=== PATIENT | female | born 1935 | race Hispanic/Latino ===

== ENCOUNTER 2017-07-09 11:46 | Inpatient (IN) | payer MEDICARE ==
[~2017-07-09] VITALS: Ht 182.9 cm; Wt 119.7 kg
--- OUTSIDE RECORDS SUMMARY | 2017-07-09 11:49 | XMS REPORT ---
[facility] Address Unknown Phone Unavailable Care Team Providers Care Lounge Car Attendant Name Role Phone RELL RUELAS Unavailable Unavailable Problems This patient has no known problems. Allergies, Adverse Reactions, Alerts This patient has no known allergies or adverse reactions. Medications This patient has no known medications. Results Test Description Test Time Test Comments Text Results Atomic Results Result Comments MR, SPINE, LUMBAR, WITH 2017-05-24 16:25:00 FINAL REPORT MRI lumbar spine with and without contrast 05/24/2017 at 1557. CLINICAL HISTORY: Lumbar spine stenosis. TECHNIQUE: MRI of the lumbar spine was performed , utilizing the following sequences: Sagittal T1, T2, STIR; axial T1 and T2; postcontrast sagittal and axial T1 with fat suppression. COMPARISON: 10/16/2015. FINDINGS: There are shallow chronic wedge deformities in the T10 and T11 vertebrae. There is no acute fracture or traumatic malalignment. Bone marrow signal intensity is unremarkable. The conus medullaris terminates at the level of the L1-2 intervertebral disc. The distal spinal cord and terminal nerve roots are unremarkable. 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 At L5-S1, loss of intervertebral disc height, dorsal disc bulge, facet joint arthropathy, and posterior ligamentous thickening contribute to severe central canal stenosis, with moderate right and moderate to severe left foraminal stenosis. At L4-5, loss of intervertebral disc height, dorsal disc bulge, facet joint arthropathy, and posterior ligamentous thickening contribute to moderate central canal and bilateral foraminal stenosis. At L3-4, dorsal disc bulge with a superimposed right subarticular disc protrusion, facet joint arthropathy, and posterior ligamentous thickening contribute to moderate central canal stenosis, with moderate right lateral recess stenosis. There is mild bilateral foraminal stenosis. At L1-2, dorsal disc bulge and facet joint arthropathy contribute to mild central canal stenosis. The visualized soft tissue is without worrisome finding. IMPRESSION: 1. No acute fracture or traumatic malalignment.2. Multifactorial central canal stenosis, severe at L5-S1 and moderate at L3-4 and L4-5.3. Multifocal neuroforaminal stenoses as discussed. Signed: Gabriel Schmitteport Verified Date/Time: 05/24/2017 16:25:49 Reading Location: [facility] Radiology Reading Room -CREATININE 2017-05-24 15:07:00 POC-CREATININE (JAY) (test euem=7113) 0.8 mg/dL 0.6-1.[address] [address] POC-EGFR (JAY) (test xyuh=2122) 69 mL/min/1.73M2
--- OUTSIDE RECORDS SUMMARY | 2017-07-09 11:49 | XMS REPORT | Clinical Summary ---
Author Author [facility] Address Unknown Phone Unavailable Care Team Providers Care Frame Operator Name Role Phone PCP Unavailable Allergies No Known Allergies Current Medications Prescription Sig. Disp. Refills Start End Date Status Date gabapentin (NEURONTIN) Take 300 mg by mouth 3 Active 300 MG capsule (three) times daily. enalapril (VASOTEC) 20 MG Take 20 mg by mouth Active tablet daily. atorvastatin (LIPITOR) 40 Take 40 mg by mouth Active MG tablet daily. acetaminophen-codeine Take 1 tablet by mouth Active (TYLENOL #3) 300-30 mg every 4 (four) hours as per tablet needed for Pain. insulin 70/30, insulin Inject 95 Units Active NPH-insulin regular, subcutaneously 2 (two) (HUMULIN 70/30,NOVOLIN times daily before meals. 70/30) 100 unit/mL (70-30) injection metoprolol (LOPRESSOR) 25 Take 1 tablet (25 mg 60 tablet 3 10/17/19 10/17/19 MG tablet total) by mouth 2 (two) 16 17 times daily. Hospital, Clinic, or Ordered Dose Route Frequency Start End Date Status Other Facility Date Administered Medication gadobenate dimeglumine 20 mL IV ONCE PRN 05/24/19 05/24/19 Ended (MULTIHANCE) injection 20 18 18 mL Active Problems Problem Noted Date Hypertensive urgency 10/16/2015 Acute right-sided low back pain with right-sided sciatica 10/16/2015 Altered mental status 10/16/2015 Morbid obesity (HCC) 10/16/2015 Polyneuropathy in diabetes ([facility]) 10/16/2015 Type 2 diabetes mellitus with diabetic neuropathy, unspecified (HCC) 2015 PAD (peripheral artery disease) ([facility]), 100% left LORENZA by hx 10/16/2015 Lumbar radicular pain, by hx 10/16/2015 Lumbar spinal stenosis, by hx 10/16/2015 Personal history of spine surgery 10/16/2015 Sciatica, by hx 10/16/2015 History of breast cancer 10/16/2015 Dyspepsia and disorder of function of stomach, by hx 10/16/2015 Claudication (HCC), by hx 10/16/2015 Encounters Date Type Specialty Care Team Description 05/24/2017 Procedure visit Radiology Michael Linder MD Bilateral stenosis of lateral recess of lumbar spine 05/18/2017 Outside Orders Radiology Michael Linder MD Bilateral stenosis of lateral recess of lumbar spine (Primary Dx) after 07/08/2016 Family History Medical History Relation Name Comments Cancer Sister Relation Name Status Comments Sister Social History Tobacco Use Types Packs/Day Years Used Date Former Smoker Alcohol Use Drinks/Week oz/Week Comments No Sex Assigned at Date Recorded Not on file Last Filed Vital Signs Not on file Plan of Treatment Not on file Results * MR lumbar spine without & with IV contrast (05/24/2017 4:01 PM) Specimen Performing Laboratory SLID Narrative FINAL REPORT MRI lumbar spine with and without contrast 05/24/2017 at 1557. CLINICAL HISTORY: Lumbar spine stenosis. TECHNIQUE: MRI of the lumbar spine was performed, utilizing the following sequences: Sagittal T1, T2, [...] IMPRESSION: 1. No acute fracture or traumatic malalignment. 2. Multifactorial central canal stenosis, severe at L5-S1 and moderate at L3-4 and L4-5. 3. Multifocal neuroforaminal stenoses as discussed. Signed: Gabriel Schmitt MD Report Verified Date/Time:05/24/2017 16:25:49 Reading Location: [facility] Radiology Reading Room Procedure Note Interface, External Ris In - 05/24/2017 4:28 PM PASTE UP COPY CAMERA OPERATOR FINAL REPORT MRI lumbar spine with and without contrast 05/24/2017 at 1557. CLINICAL HISTORY: Lumbar spine stenosis. TECHNIQUE: MRI of the lumbar spine was performed, utilizing the following sequences: Sagittal T1, T2, [...] IMPRESSION: 1. No acute fracture or traumatic malalignment. 2. Multifactorial central canal stenosis, severe at L5-S1 and moderate at L3-4 and L4-5. 3. Multifocal neuroforaminal stenoses as discussed. Signed: Gabriel Schmitt MD Report Verified Date/Time: 05/24/2017 16:25:49 Reading Location: [facility] Radiology Reading Room * POC-Creatinine (05/24/2017 3:00 PM) Component Value Ref Range POC-Creatinine 0.8Comment: TESTED AT [address] 0.6 - 1.3 mg/dL [facility] [address] POC-EGFR 69 mL/min/1.73M2 Specimen Performing Laboratory Blood [facility] [address] [address] after 07/08/2016
[2017-07-09] MEDS ORDERED: ALBUTEROL SULF 0.083% NEB SOLN 3 ML NEB NEB STA (12:46)
[2017-07-09] MEDS ORDERED: TYLENOL WITH C1 EACH PO (12:49)
[2017-07-09] MEDS ORDERED: CILOSTAZOL100 MG PO (12:49)
[2017-07-09] MEDS ORDERED: RANITIDINE HCL150 MG PO (12:49)
[2017-07-09] MEDS ORDERED: LASIX40 MG PO (12:49)
[2017-07-09] MEDS ORDERED: CITALOPRAM HBR20 MG PO (12:49)
[2017-07-09] MEDS ORDERED: METOPROLOL TART50 MG PO (12:49)
[2017-07-09] MEDS ORDERED: IPRATROPIUM BROMIDE 0.02% 2.5 ML NEB NEB ONE (13:00)
[2017-07-09] MEDS ORDERED: FUROSEMIDE INJ 10 MG/ML 4 ML VIAL IV ONE (13:00)
[2017-07-09] MEDS ORDERED: METHYLPREDNISOLONE SOD SUCC 125 MG/2ML VIAL IV ONE (13:00)
[2017-07-09] MEDS ORDERED: CEFTRIAXONE SOD 1 GM VIAL IV ONE (13:00)
[2017-07-09] MEDS ORDERED: AZITHROMYCIN 500MG/NS 250 ML 250 ML IV ONE ×2 (13:15→17:30)
--- OUTSIDE RECORDS SUMMARY | 2017-07-09 14:26 | XMS REPORT | Clinical Summary ---
Author Author [facility] Address Unknown Phone Unavailable Care Team Providers Care Boiler Out Name Role Phone PCP Unavailable Allergies No [...] Morbid obesity (HCC) 10/16/2015 Polyneuropathy in diabetes ([facility]) 10/16/2015 Type 2 diabetes mellitus with diabetic neuropathy, unspecified (HCC) 2015 PAD (peripheral artery disease) ([facility]), 100% left LORENZA by hx 10/16/2015 Lumbar [...] contrast (05/24/2017 4:01 PM) Specimen Performing Laboratory Lydia Narrative FINAL REPORT MRI lumbar spine with [...] MD Report Verified Date/Time:05/24/2017 16:25:49 Reading Location: [facility] Radiology Reading Room Procedure Note Interface, External Ris In - 05/24/2017 4:28 PM SNOW PLOW OPERATOR FINAL REPORT MRI lumbar spine with [...] Report Verified Date/Time: 05/24/2017 16:25:49 Reading Location: [facility] Radiology Reading Room * POC-Creatinine (05/24/2017 3:00 PM) Component Value Ref Range POC-Creatinine 0.8Comment: TESTED AT [address] 0.6 - 1.3 mg/dL [facility] [address] POC-EGFR 69 mL/min/1.73M2 Specimen Performing Laboratory Blood [facility] [address] [address] after 07/08/2016
--- OUTSIDE RECORDS SUMMARY | 2017-07-09 14:26 | XMS REPORT | Continuity of Care Document ---
Author Author [facility] Organization [facility] Address [address] [place] [address] Phone Unavailable Care Team Providers Care Financial Secretary Name Role Phone RELL RUELAS MD PCP Unavailable Insurance Providers Guarantor Veto Pang Address [address] [place] [address] Email NONE Payer [employer] Medicare Advantage Policy Number [id number] Subscriber's Name Veto Pang Relationship 18 Self / Same As Patient Group Name RETIRED Advance Directives Directive Response Recorded Date/Time Does the patient have an advance directive? No 07/09/17 12:24pm If yes, is advance directive on file with [facility]? No 07/09/17 12:24pm If not on file with [facility] will patient provide a copy? No 07/09/17 12:24pm Do you have a Directive to Physician? No 07/09/17 12:24pm Do you have a Medical Power of Cane Packer? No 07/09/17 12:24pm Do you have an out of hospital Do Not Resuscitate Order? No 07/09/17 12:24pm Do you have any special needs we should be aware of? No 07/09/17 12:24pm Do you have a support person here with you today? Yes 07/09/17 12:24pm Did patient receive Notice of Privacy Practices? Yes 07/09/17 12:24pm Did patient receive patient rights and responsibilities? Yes 07/09/17 12:24pm Problems No problem information available. Medications Current Home Medications Medication Dose Units Route Directions Days Qty Instructions Start Date Acetaminophen With Codeine (Tylenol With Codeine #3 Tablet) 1 Each Tablet 300 Mg Oral Every 4 Hours Cilostazol 100 Mg Tablet 50 Mg Oral Twice A Day 30 Tab Citalopram Hydrobromide (Citalopram Hbr) 20 Mg Tablet 20 Mg Oral Daily Furosemide (Lasix) 40 Mg Tablet 40 Mg Oral Daily 30 Tab Metoprolol Tartrate 50 Mg Tablet 50 Mg Oral Daily Ranitidine Hcl 150 Mg Tablet 150 Mg Oral Bedtime Social History Smoking Status Start Date Stop Date Former smoker Hospital Discharge Instructions No hospital discharge instruction information available. Plan of Care Discharge Date 07/09/17 2:03pm Disposition ADMITTED Condition at Discharge Stable Forms Provided Work/School Excuse Prescriptions See Medication Section Functional Status No functional status information available. Allergies, Adverse Reactions, Alerts Allergen Type Severity Reaction Status Last Updated UNK NAME MUSCLE RELAXER Allergy Unknown Active 07/09/17 Immunizations No immunization information available. Vital Signs Acute Vital Signs Vital Response Date/Time Height 5 ft 1 in 07/09/2017 12:23pm Weight 269 lb 07/09/2017 12:23pm Body Mass Index 50.8 kg/m^2 07/09/2017 12:23pm Results No relevant diagnostic test, laboratory data and/or discharge summary information available. Procedures No procedure information available. Encounters Encounter Location Arrival/Admit Date Discharge/Depart Date Attending Provider Departed Emergency Room [facility] 07/09/17 11:46am 07/09 2:03pm DEMETRIA WALTERS
[2017-07-09 14:59] VITALS: BP 150/67
[2017-07-09 15:14] VITALS: BP 150/67
[2017-07-09] MEDS ORDERED: NOVOLOG MI100 UNIT/1 SC (15:29)
[2017-07-09] MEDS ORDERED: GABAPENTIN300 MG PO ×2 (15:30→15:31)
[2017-07-09] MEDS ORDERED: SODIUM CHLORIDE 0.9% 250ML 250 ML ONE (17:35)
[2017-07-09] MEDS ORDERED: HYDRALAZINE HCL 20 MG/ML VIAL IV PRN (18:15)
[2017-07-09] MEDS ORDERED: METOPROLOL TARTRATE 50 MG TAB PO SCH (18:30)
[2017-07-09] MEDS ORDERED: DEXTROSE 50% SYRINGE 50 ML IV PRN (18:30)
[2017-07-09 20:21] VITALS: BP 130/45
[2017-07-09] MEDS ORDERED: INSULIN ASPART 70/30 100 UNITS/ML VIAL SC ONE (21:00)
[2017-07-09] MEDS: INSULIN REGULAR, HUMAN 100 UNIT/1 ML 3ML VIAL SQ SCH (21:40)
[2017-07-09] MEDS: GABAPENTIN 300 MG CAP PO SCH (21:40)
[2017-07-09] MEDS: METOPROLOL TARTRATE 50 MG TAB PO SCH (21:40)
[2017-07-09] MEDS: FAMOTIDINE 20 MG TAB PO SCH (21:40)
[2017-07-09] MEDS: ACETAMINOPHEN/CODEINE 300MG - 30MG TAB PO SCH (21:40)
[2017-07-10] VITALS (7 sets, daily range): BP systolic 122–156; BP diastolic 53–63
[2017-07-10] MEDS: ACETAMINOPHEN/CODEINE 300MG - 30MG TAB PO SCH ×2 (02:00→05:27)
--- NOTE | 2017-07-10 06:37 | Diagnostic Imaging Report ---
CHEST 2 VIEWS, the renal Technique: CHEST 2 VIEWS Comparison: None Clinical history: Pneumonia DISCUSSION: Significantly limited by body habitus. Enlarged cardiomediastinal silhouette. Suggestion of mild bilateral interstitial opacities. No significant effusion. IMPRESSION: Significantly degraded by soft tissue attenuation. Enlarged cardiomediastinal silhouette with suggestion of bilateral opacities which may be related to edema or infection. Signed by: Dr Antoinette Zhao MD on 07/10/2017 6:33 AM
[2017-07-10 07:21] LABS: BASOPHILS % 0.1 % (0.0-1.0); HEMOGLOBIN 11.6 g/dL (12.0-16.0); LYMPHOCYTES # (AUTO) 0.9 (1.0-3.2); LYMPHOCYTES % 7.6 % (18.0-39.1); MEAN CORPUSCULAR HGB CONC 31.4 g/dL (31-35); MEAN CORPUSCULAR VOLUME 89.4 fL (81-99); MONOCYTES # (AUTO) 0.6 (0.2-0.8); MONOCYTES % 4.8 % (4.4-11.3); NEUTROPHILS # (AUTO) 10.2 (2.1-6.9); NEUTROPHILS % 87.1 % (38.7-80.0); PLATELET COUNT 57 x10e3/uL (140-360); RED BLOOD COUNT 4.14 x10e6/uL (3.6-5.1); RED CELL DISTRIBUTION WIDTH 15.1 % (11.7-14.4)
[2017-07-10 07:51] LABS: ALANINE AMINOTRANSFERASE 16 IU/L (0-55); ALBUMIN 2.8 g/dL (3.5-5.0); ALBUMIN/GLOBULIN RATIO 0.6 (0.8-2.0); ALKALINE PHOSPHATASE 70 IU/L (40-150); ANION GAP 11.6 mmol/L (8-16); BLOOD UREA NITROGEN 17 mg/dL (7-26); BUN/CREATININE RATIO 22 (6-25); CALCIUM 9.1 mg/dL (8.4-10.2); CARBON DIOXIDE 33 mmol/L (22-29); CHLORIDE 99 mmol/L (98-107); CREATININE, SERUM 0.79 mg/dL (0.57-1.11); EST GLOMERULAR FILTRATION RATE > 60 ML/MIN (60-); GLUCOSE 191 mg/dL (74-118); POTASSIUM 4.6 mmol/L (3.5-5.1); SODIUM 139 mmol/L (136-145)
[2017-07-10] MEDS: GABAPENTIN 300 MG CAP PO SCH ×3 (08:30→20:20)
[2017-07-10] MEDS: INSULIN REGULAR, HUMAN 100 UNIT/1 ML 3ML VIAL SQ SCH ×4 (08:30→20:22)
[2017-07-10] MEDS: FUROSEMIDE 40 MG TAB PO SCH (08:30)
[2017-07-10] MEDS: CILOSTAZOL 100 MG TAB PO SCH ×2 (08:30→19:20)
[2017-07-10] MEDS: INSULIN ASPART 70/30 100 UNITS/ML VIAL SC SCH ×2 (08:30→16:45)
[2017-07-10] MEDS: METOPROLOL TARTRATE 50 MG TAB PO SCH ×2 (09:00→20:20)
[2017-07-10] MEDS: CEFTRIAXONE SOD 1 GM VIAL IV SCH (12:22)
--- NOTE | 2017-07-10 12:22 | History and Physical ---
PRIMARY CARE DOCTOR: Dr. Linder with [facility]. HOSPITAL PHYSICIAN: Dr. Alireza Cook HISTORY: Ms. Caputo is a pleasant 81-year-old female with shortness of breath. Patient with symptoms times 1-1/2 days pattern of progression. Family finally pushed the patient to come to the emergency room as patient often avoids situations like health care. Patient's condition was worsened by walking and exertion. There was no definite sputum being expectorated. No fevers. Patient came to emergency room. Of note, blood pressure recorded as 255/98. Oxygen saturation was 85% on room air. Heart rate was 84. Labs were, for the most part, mostly unremarkable, but patient had chest x-ray showing right-sided opacity consistent with pneumonia versus early vascular congestion. At this point, she is admitted to the hospital. PAST MEDICAL HISTORY: Hypertension, diabetes, hyperlipidemia, breast cancer, status post left mastectomy, neuropathy, recently diagnosed rheumatoid arthritis, she says 3 weeks ago. MEDICATIONS: Medication list reviewed per electronic record. Of note, she was not on any immunosuppression for the rheumatoid disease yet as far as she can tell. Other medicines for electronic record. ALLERGIES: UNKNOWN MUSCLE RELAXER. SOCIAL HISTORY: No alcohol, no drugs. Patient smoked from age 17 to 61, one pack per day, but quit 20 years ago. No alcohol, no drugs. She formerly worked in a flower shop and currently lives with her daughter. FAMILY HISTORY: Noncontributory to this. REVIEW OF SYSTEMS GENERAL: No weight changes. OPHTHALMOLOGIC: No double vision. ENT: No nosebleed. ENDOCRINE: No known thyroid disease. PULMONARY: No asthma. CARDIAC: No heart attacks. GI: No constipation. : No blood in urine. NEUROLOGIC: No seizures. DERMATOLOGIC: No rashes. MUSCULOSKELETAL: There is some arthritis, it is mostly mild. OBJECTIVE VITAL SIGNS: Afebrile, vital signs reviewed per electronic record. Blood pressure has gotten better. GENERAL: In bed, calm. HEENT: Normocephalic, atraumatic. NECK: Supple. Throat midline. LUNGS: Bilateral air entry, decreased breath sounds throughout, rare rhonchi. CARDIOVASCULAR: S1, S2. No murmurs, rubs or gallops. ABDOMEN: Soft and nontender. EXTREMITIES: No clubbing, no cyanosis. There is 1 to 2+ edema. INTEGUMENT: No rash, no purpura. LABS: BNP was 299. Initial cardiac enzymes are negative. Potassium 4.3, bicarbonate 33, glucose 176, calcium 9.0, BUN 11, creatinine 0.7, albumin is 3.3. Coagulation time unremarkable per record with INR 1.1. Urinalysis with trace blood, 100 mg/dL protein. Otherwise, unremarkable with negative nitrates and negative leukocyte esterase. White count 9, hematocrit 37, platelets 119,000. Chest x-ray, above. IMPRESSIONS AND PLAN 1. Abnormal chest radiography, treat for acute pneumonia. 2. Abnormal chest radiography, treat for possible pulmonary edema, related to hypertensive emergency. 3. Hypertensive emergency. 4. Hypoxemia. 5. Possible chronic obstructive pulmonary disease. 6. Former smoker, quit 20 years ago. 7. Hyperlipidemia, diabetes, hypertension, neuropathy, breast cancer, recent diagnosis of rheumatoid arthritis. Bronchodilators. Give some steroids. IV antibiotics empiric for now. Check an echo. Patient has high recommendation for outpatient sleep study since she was referred to this before, but she did not go to specialist for this. Check TSH. Physical therapy. If patient stabilizes, we hope she can leave the hospital soon, although this will depend on the clinical workup. Follow up including blood pressure, and oxygenation. Patient needs home oxygen evaluation prior to discharge. Thank very much, Dr. Linder and Dr. Cook, for allowing me the chance to participate in the care of Mrs. Caputo. Do not hesitate to contact me if I can help in any way. Job#: [id number] CQ
[2017-07-10] MEDS: AZITHROMYCIN 500MG/NS 250 ML 250 ML IV SCH (19:20)
[2017-07-10] MEDS: ACETAMINOPHEN/CODEINE 300MG - 30MG TAB PO PRN (19:58)
[2017-07-10] MEDS: FAMOTIDINE 20 MG TAB PO SCH (20:20)
[2017-07-10] MEDS ORDERED: GABAPENTIN300 MG PO (21:31)
[2017-07-10] MEDS ORDERED: LASIX40 MG PO ×2 (21:31→21:36)
[2017-07-10] MEDS ORDERED: ZITHROMAX500 MG PO (21:31)
[2017-07-10] MEDS ORDERED: LISINOPRIL10 MG PO (21:34)
--- NOTE | 2017-07-10 22:10 | Progress Note ---
DATE: July 10, 2017 INTERNAL MEDICINE PROGRESS NOTE SUBJECTIVE: Ms. Roula Caputo was seen and examined at bedside. She continues to have slow progress. She is feeling that her strength is at about 80% of her normal. She is eating well. Chest x-ray done showed continued active process consistent with mild fluid overload versus mild pneumonitis. Echocardiogram was done showing 60% to 65% LVEF with RVSP estimated at 37 mmHg with enlarged RV and 1.1 cm intraventricular septum distance. Blood pressure is not critically high as was yesterday. REVIEW OF SYSTEMS: No bleeding, no headaches. OBJECTIVE: VITAL SIGNS: Afebrile, vital signs noted per electronic record. GENERAL: In no acute distress, alert and calm. HEENT: Normocephalic, atraumatic. NECK: Supple. Throat midline. LUNGS: Bilateral air entry, rare rhonchi, mostly clear. CARDIOVASCULAR: S1, S2. No murmurs, rubs, or gallops. ABDOMEN: Soft, nontender, obese. EXTREMITIES: No clubbing, no cyanosis, there is 2+ edema. INTEGUMENT: No rash, no purpura. LABS: 17 BUN, 0.8 creatinine. 4.6 potassium. 4 white count, 37 hematocrit, 57,000 platelets. IMPRESSION AND PLAN: 1. Treat for mild pulmonary edema, likely due to hypertensive emergency. 2. Possible pneumonia. 3. Hypertensive emergency. 4. Weakness. 5. Hyperglycemia, mildly high. 6. Moderate hypoalbuminemia. 7. Elevated gamma globulins. 8. Low platelets. 9. Hyperlipidemia. 10. Breast cancer, status post left mastectomy. 11. Neuropathy. 12. Recently diagnosed rheumatoid arthritis. Continue oxygen weaning. Get oxygen assessment tomorrow if the patient goes home. Continue to control blood pressure. Continue Lasix intravenously. Repeat a chest x-ray tomorrow. Repeat complete blood cell count given the low platelets. Will follow along closely. Possible discharge if she continues to improve tomorrow. Job#: [id number]
[2017-07-11] VITALS (8 sets, daily range): BP systolic 113–170; BP diastolic 49–73
[2017-07-11] MEDS: ACETAMINOPHEN/CODEINE 300MG - 30MG TAB PO PRN ×2 (05:15→19:45)
[2017-07-11 06:22] LABS: BASOPHILS % 0.3 % (0.0-1.0); EOSINOPHILS # (AUTO) 0.1 (0.0-0.4); EOSINOPHILS % 0.6 % (0.0-6.0); HEMATOCRIT 36.9 % (34.2-44.1); HEMOGLOBIN 11.5 g/dL (12.0-16.0); LYMPHOCYTES # (AUTO) 1.6 (1.0-3.2); LYMPHOCYTES % 13.5 % (18.0-39.1); MEAN CORPUSCULAR HGB CONC 31.2 g/dL (31-35); MONOCYTES # (AUTO) 0.9 (0.2-0.8); MONOCYTES % 7.7 % (4.4-11.3); NEUTROPHILS % 77.5 % (38.7-80.0); PLATELET COUNT 115 x10e3/uL (140-360); RED CELL DISTRIBUTION WIDTH 15.2 % (11.7-14.4)
--- NOTE | 2017-07-11 06:28 | Diagnostic Imaging Report ---
EXAMINATION: CHEST SINGLE (PORTABLE) INDICATION: Congestive heart failure COMPARISON: 07/10/2017 FINDINGS: TUBES and LINES: None. LUNGS: Lungs are not well inflated. Central vascular congestion. There is perihilar interstitial opacities, consistent with interstitial edema. PLEURA: No pleural effusion or pneumothorax. HEART AND MEDIASTINUM: Cardiac size is mildly enlarged. There are atherosclerotic calcifications within the aorta. BONES AND SOFT TISSUES: No acute osseous lesion. Soft tissues are unremarkable. UPPER ABDOMEN: No free air under the diaphragm. IMPRESSION: Findings are compatible with mild cardiogenic pulmonary edema Signed by: Dr. Tl Swanson M.D. on 07/11/2017 6:24 AM
[2017-07-11] MEDS: INSULIN REGULAR, HUMAN 100 UNIT/1 ML 3ML VIAL SQ SCH ×4 (07:30→22:44)
[2017-07-11] MEDS ORDERED: FUROSEMIDE INJ 10 MG/ML 4 ML VIAL IV ONE ×2 (08:00→21:00)
[2017-07-11] MEDS: INSULIN ASPART 70/30 100 UNITS/ML VIAL SC SCH ×2 (08:00→16:40)
[2017-07-11] MEDS: FUROSEMIDE 40 MG TAB PO SCH (08:42)
[2017-07-11] MEDS: CILOSTAZOL 100 MG TAB PO SCH ×2 (08:42→17:07)
[2017-07-11] MEDS: GABAPENTIN 300 MG CAP PO SCH ×3 (08:42→22:40)
[2017-07-11] MEDS: METOPROLOL TARTRATE 50 MG TAB PO SCH ×2 (08:42→22:40)
[2017-07-11] MEDS: CEFTRIAXONE SOD 1 GM VIAL IV SCH (12:02)
[2017-07-11] MEDS: AZITHROMYCIN 500MG/NS 250 ML 250 ML IV SCH (17:07)
[2017-07-11] MEDS: FAMOTIDINE 20 MG TAB PO SCH (22:40)
--- NOTE | 2017-07-11 23:48 | Progress Note ---
DATE: July 11, 2017 INTERNAL MEDICINE PROGRESS NOTE SUBJECTIVE: Ms. Caputo was seen and examined at bedside. She continues to have early dyspnea. Blood pressure mildly high, but definitely not emergent. 97% oxygen saturation on 2 L per minute oxygen. There is mild hematuria per Martin in place. Two bowel movements noted. Patient with 87% room air saturation at rest noted. REVIEW OF SYSTEMS: No bleeding, no diarrhea. OBJECTIVE VITAL SIGNS: Afebrile, vital signs noted per electronic record. GENERAL: In no acute distress, alert and calm. HEENT: Normocephalic, atraumatic. NECK: Supple. Throat midline. LUNGS: Bilateral air entry, decreased breath sounds throughout, rare rhonchi. CARDIOVASCULAR: S1, S2. No murmurs, rubs or gallops. ABDOMEN: Soft, nontender. EXTREMITIES: No clubbing, no cyanosis, there is still the 1 to 2+ edema. INTEGUMENT: No rash, no purpura. LABS: 115,000 platelet count increasing, 11 white count. CHEST X-RAY: Stable bilateral patchy opacities, pneumonia versus overload. IMPRESSIONS AND PLAN 1. Abnormal chest radiography, treat as fluid overload. 2. Hypertension with emergency with very high blood pressure. 3. Abnormal chest radiography, possible pneumonia. 4. Thrombocytopenia. 5. Hypoxemia. 6. Moderate hypoalbuminemia, elevated gamma globulins, low platelets. 7. Hyperlipidemia. 8. Breast cancer, status post mastectomy. 9. Neuropathy. 10. Recently diagnosed rheumatoid arthritis. Continue current treatment at this time. Home oxygen will be ordered. Increase Lasix further. Ought to get better improvement in functional endurance prior to her going home. Follow along closely. Continue antibiotics for possibility of pneumonia. Glucose control. Job#: [id number] CQ
[2017-07-12] MEDS: ACETAMINOPHEN/CODEINE 300MG - 30MG TAB PO PRN ×2 (00:04→09:15)
[2017-07-12 01:30] VITALS: BP 122/55
[2017-07-12 05:50] VITALS: BP 175/60
--- NOTE | 2017-07-12 06:48 | Diagnostic Imaging Report ---
EXAMINATION: CHEST SINGLE (PORTABLE) INDICATION: Congestive heart failure COMPARISON: 07/11/2017 FINDINGS: TUBES and LINES: None. LUNGS: Lungs are not well inflated. There are bibasilar atelectasis. There is mild prominence of the central pulmonary vasculature, consistent with pulmonary venous congestion. PLEURA: No pleural effusion or pneumothorax. HEART AND MEDIASTINUM: Cardiac size is moderately enlarged. There are atherosclerotic calcifications within the aorta. BONES AND SOFT TISSUES: No acute osseous lesion. Soft tissues are unremarkable. UPPER ABDOMEN: No free air under the diaphragm. IMPRESSION: 1. Limited exam due to motion artifact 2. Cardiomegaly without distinct evidence of decompensation Signed by: Dr. Tl Swanson M.D. on 07/12/2017 6:44 AM
[2017-07-12 07:14] LABS: ANION GAP 10.2 mmol/L (8-16); BLOOD UREA NITROGEN 25 mg/dL (7-26); BUN/CREATININE RATIO 31 (6-25); CHLORIDE 93 mmol/L (98-107); EST GLOMERULAR FILTRATION RATE > 60 ML/MIN (60-); MAGNESIUM 1.5 MG/DL (1.3-2.1); POTASSIUM 4.2 mmol/L (3.5-5.1); SODIUM 140 mmol/L (136-145)
[2017-07-12] MEDS: INSULIN REGULAR, HUMAN 100 UNIT/1 ML 3ML VIAL SQ SCH ×3 (07:30→16:30)
[2017-07-12 08:00] VITALS: BP 168/71
[2017-07-12] MEDS: GABAPENTIN 300 MG CAP PO SCH ×2 (08:45→11:22)
[2017-07-12] MEDS ORDERED: FUROSEMIDE INJ 10 MG/ML 4 ML VIAL IV SCH (09:00)
[2017-07-12] MEDS ORDERED: LISINOPRIL 10 MG TAB PO SCH (09:00)
[2017-07-12] MEDS: METOPROLOL TARTRATE 50 MG TAB PO SCH (09:04)
[2017-07-12] MEDS: CILOSTAZOL 100 MG TAB PO SCH ×2 (09:04→17:00)
[2017-07-12] MEDS: INSULIN ASPART 70/30 100 UNITS/ML VIAL SC SCH ×2 (09:05→17:13)
[2017-07-12 09:42] LABS: CARBON DIOXIDE 41 mmol/L (22-29); GLUCOSE 59 mg/dL (74-118)
[2017-07-12 12:00] VITALS: BP 147/67
[2017-07-12] MEDS: CEFTRIAXONE SOD 1 GM VIAL IV SCH (12:56)
[2017-07-12 16:00] VITALS: BP 163/57
--- NOTE | 2017-07-13 06:26 | Discharge Summary ---
PRIMARY DIAGNOSES 1. Hypertension emergency. 2. Treated for acute pneumonia. 3. Treated for pulmonary edema. SECONDARY DIAGNOSES 1. Hypoxemia upon discharge. 2. Possible chronic obstructive pulmonary disease. 3. Obesity. 4. Former smoker but quit 20 years ago. 5. Hyperlipidemia. 6. Diabetes. 7. Hypertension. 8. Neuropathy. 9. Breast cancer. 10. Reported recent diagnosis of rheumatoid arthritis. HOSPITAL COURSE: The patient had 1-1/2 days of symptoms. She came to the emergency room with blood pressure of 255/98. Oxygen saturation was 85% on room air. Chest x-ray showed opacity consistent with pneumonia versus fluid overload. She was admitted. Blood pressure was controlled. The patient's pneumonia was treated. Chest x-ray was also slightly improved, and she was given some diuretics. Eventually, she was allowed to go home for outpatient followup and care. She was highly recommended for outpatient sleep study, which her previous doctor was definitely recommending, but she was deferring. I gave this recommendation to the family. Diuretics were slightly increased at discharge, and she was given some antibiotic course to finish up after she left the hospital. FOLLOWUP: Dr. Linder at [facility]. NUTRITION: Cardiac, diabetic diet. ACTIVITY: At discharge is as tolerated. MEDICATIONS ON DISCHARGE: See medication record for details. Greater than 30 minutes in direct care today for discharge coordination. CALDERON MARROQUIN MD Job#: [id number]
== END 2017-07-12 17:20 | disposition home or self-care (01) | DRG 304 ==
LOC: FSED 11:46 → MED/SURG2 14:23
PROVIDERS: ADMIT Internal Medicine; ATTEND Internal Medicine
DX: I16.1 Hypertensive emergency (principal); J18.9 Pneumonia, unspecified organism; J81.1 Chronic pulmonary edema; J44.0 Chronic obstructive pulmonary disease with (acute) lower respiratory infection; I10 Essential (primary) hypertension; E11.65 Type 2 diabetes mellitus with hyperglycemia; E11.40 Type 2 diabetes mellitus with diabetic neuropathy, unspecified; D69.6 Thrombocytopenia, unspecified; E88.09 Other disorders of plasma-protein metabolism, not elsewhere classified; R09.02 Hypoxemia; E78.5 Hyperlipidemia, unspecified; E66.9 Obesity, unspecified; Z68.35 Body mass index [BMI] 35.0-35.9, adult; M06.9 Rheumatoid arthritis, unspecified; Z87.891 Personal history of nicotine dependence; Z85.3 Personal history of malignant neoplasm of breast; Z79.4 Long term (current) use of insulin
CPT/HCPCS: 36415; 51700; 71045; 71046; 80048; 80053; 82553; 82948; 83735; 83880; 84443; 84484; 85025; 85610; 87040; 93005; 93306; 97139; 99285; J0456; J0696; J1815; J1940; J7050; J7799

== ENCOUNTER 2017-08-04 11:57 | Inpatient (IN) | payer MEDICARE ==
[~2017-08-04] VITALS: Ht 152.4 cm; Wt 119.4 kg
[~2017-08-04 11:57] MED LIST: CILOSTAZOL100 MG PO; CITALOPRAM HBR20 MG PO; GABAPENTIN300 MG PO; LASIX40 MG PO; LISINOPRIL10 MG PO; METOPROLOL TART50 MG PO; NOVOLOG MI100 UNIT/1 SC; RANITIDINE HCL150 MG PO; TYLENOL WITH C1 EACH PO; ZITHROMAX500 MG PO
--- OUTSIDE RECORDS SUMMARY | 2017-08-04 12:00 | XMS REPORT | Continuity of Care Document ---
Author Author [facility] Organization [facility] Address [address] [place] [address] Phone Unavailable Care Team Providers Care Pattern Maker Name Role Phone RELL RUELAS MD PCP Unavailable Insurance Providers Guarantor Veto Caputo Address [address] [place] [address] Email NONE Payer [employer] Medicare Advantage Policy Number [id number] Subscriber's Name HarshalVeto Relationship 18 Self / Same As Patient Group Name RETIRED Effective Date 09 Advance Directives Directive Response Recorded Date/Time Does the patient have an advance directive? No 07/09/17 2:59pm If yes, is advance directive on file with [facility]? No 07/09/17 2:59pm If not on file with [facility] will patient provide a copy? No 07/09/17 2:59pm Do you have a Directive to Physician? No 07/09/17 12:24pm Do you have a Medical Power of Kayak Maker? No 07/09/17 12:24pm Do you have an [...] Tablet 300 Mg Oral Every 4 Hours Azithromycin (Zithromax) 500 Mg Tablet 500 Mg Oral Daily 5 Tab 05/28 Cilostazol 100 Mg Tablet 50 Mg Oral Twice A Day 30 Tab Furosemide (Lasix) 40 Mg Tablet 60 Mg Oral Daily 45 Tab 07/10/17 Gabapentin 300 Mg Capsule 300 Mg Oral Twice Daily Breakfast & Lunch 60 Cap Gabapentin 300 Mg Capsule 600 Mg Oral Bedtime 30 Cap 07/10/17 Insuln Asp Prt/Insulin Aspart (Novolog Mix 70-30 Flexpen Syrn) 100 Unit/1 Ml Insuln.pen 85 Subcutaneously Every 12 Hours Lisinopril 10 Mg Tablet 10 Mg Oral Daily 30 Tab 07/10/17 Metoprolol Tartrate 50 Mg Tablet 50 Mg Oral Every 12 Hours Ranitidine Hcl 150 Mg Tablet 150 Mg Oral Bedtime Past Home Medications Medication Directions Ordered Status Citalopram Hydrobromide (Citalopram Hbr) 20 Mg Tablet, 20 Mg Oral Daily Discontinued Furosemide (Lasix) 40 Mg Tablet, 60 Mg Oral Daily 07/10/17 Discontinued Furosemide (Lasix) 40 Mg Tablet, 40 Mg Oral Daily Discontinued Gabapentin 300 Mg Capsule, 600 Mg Oral Discontinued Social History Social History Problem Response Recorded Date/Time Onset Date Status Hx Psychiatric Problems No 07/09/2017 2:59pm Not Applicable Not Applicable Smoking Status Start Date Stop Date Former smoker Hospital Discharge Instructions No hospital discharge instruction information available. Plan of Care Discharge Date 07/12/17 5:20pm Disposition HOME, SELF-CARE Instructions/Education Provided Pneumonia - Bacterial Prescriptions See Medication Section Additional Instructions/Education CONTINUE DIET AND ACTIVITY TOLERATED FOLLOW UP WITH PRIMARY IN 1-2 WEEKS SRINIVASA JANSEN Functional Status Query Response Date Recorded FUNCTIONAL STATUS . July 10, 2017 4:12pm Assistive Devices Straight Cane July 09, 2017 3:14pm Ambulation Ability Standby Assistance July 09, 2017 3:14pm Toileting Ability Independent July 12, 2017 5:20pm Allergies, Adverse Reactions, Alerts Allergen Type Severity Reaction Status Last Updated UNK NAME MUSCLE RELAXER Allergy Unknown Active 07/09/17 Immunizations No immunization information available. Vital Signs Acute Vital Signs Vital Response Date/Time Temperature (Fahrenheit) 98.9 degrees F (97.6 - 99.5) 07/12/2017 4:00pm Pulse Pulse Rate (adult) 65 bpm (60 - 90) 07/12/2017 4:00pm Respiratory Rate 19 bpm (12 - 24) 07/12/2017 4:00pm Blood Pressure 163/57 mm Hg 07/12/2017 4:00pm Height 6 ft 0 in 07/09/2017 6:34pm Weight 264 lb 07/09/2017 2:59pm Body Mass Index 35.8 kg/m^2 07/09/2017 6:34pm Results Laboratory Results Test Name Result Units Flags Reference Collection Date/Time Result Date/ Time Comments White Blood Count 11.59 x10e3/uL H 4.8-10.8 07/11/2017 5:55am 2017 6:23am Red Blood Count 4.10 x10e6/uL 3.6-5.1 07/11/2017 5:55am 07/11/2017 6: 23am Hemoglobin 11.5 g/dL L 12.0-16.0 07/11/2017 5:55am 07/11/2017 6:23am Hematocrit 36.9 % 34.2-44.1 07/11/2017 5:55am 07/11/2017 6:23am Mean Corpuscular Volume 90.0 fL 81-99 07/11/2017 5:55am 07/11/2017 6: 23am Mean Corpuscular Hemoglobin 28.0 pg 28-32 07/11/2017 5:55am 07/11/2017 6:23am Mean Corpuscular Hemoglobin Concent 31.2 g/dL 31-35 07/11/2017 5:55am 07/11/2017 6:23am Red Cell Distribution Width 15.2 % H 11.7-14.4 07/11/2017 5:55am 2017 6:23am Platelet Count 115 x10e3/uL L 140-360 07/11/2017 5:55am 07/11/2017 6: 23am Neutrophils (%) (Auto) 77.5 % 38.7-80.0 07/11/2017 5:55am 07/11/2017 6: 23am Lymphocytes (%) (Auto) 13.5 % L 18.0-39.1 07/11/2017 5:55am 07/11/2017 6 :23am Monocytes (%) (Auto) 7.7 % 4.4-11.3 07/11/2017 5:55am 07/11/2017 6: 23am Eosinophils (%) (Auto) 0.6 % 0.0-6.0 07/11/2017 5:55am 07/11/2017 6: 23am Basophils (%) (Auto) 0.3 % 0.0-1.0 07/11/2017 5:55am 07/11/2017 6:23am IM GRANULOCYTES % 0.4 % 0.0-1.0 07/11/2017 5:55am 07/11/2017 6:23am Neutrophils # (Auto) 9.0 H 2.1-6.9 07/11/2017 5:55am 07/11/2017 6: 23am Lymphocytes # (Auto) 1.6 1.0-3.2 07/11/2017 5:55am 07/11/2017 6:23am Monocytes # (Auto) 0.9 H 0.2-0.8 07/11/2017 5:55am 07/11/2017 6:23am Eosinophils # (Auto) 0.1 0.0-0.4 07/11/2017 5:55am 07/11/2017 6:23am Basophils # (Auto) 0.0 0.0-0.1 07/11/2017 5:55am 07/11/2017 6:23am Absolute Immature Granulocyte (auto 0.05 x10e3/uL 0-0.1 07/11/2017 5: 55am 07/11/2017 6:23am Sodium Level 140 mmol/L 136-145 07/12/2017 6:12am 07/12/2017 7:25am Potassium Level 4.2 mmol/L 3.5-5.1 07/12/2017 6:12am 07/12/2017 7:25am Chloride Level 93 mmol/L L 98-107 07/12/2017 6:12am 07/12/2017 7:25am Carbon Dioxide Level 41 mmol/L *H 22-29 07/12/2017 6:12am 07/12/2017 9: 42am Results called to SRINIVASA MONCADA RN at 0722 on 07/12/17 by Archie Bautista. RB OK. This test has been rerun and double checked for accuracy. Anion Gap 10.2 mmol/L 8-16 07/12/2017 6:12am 07/12/2017 7:25am Blood Urea Nitrogen 25 mg/dL 7-07/12/2017 6:12am 07/12/2017 7:25am Creatinine 0.80 mg/dL 0.57-1.11 07/12/2017 6:12am 07/12/2017 7:25am BUN/Creatinine Ratio 31 H 6-25 07/12/2017 6:12am 07/12/2017 7:25am Estimat Glomerular Filtration Rate > 60 ML/MIN 60- 07/12/2017 6:12 7:25am Ranges were taken from the National Kidney Disease Education Program and the National Kidney Foundation literature. Reference ranges: 60 or greater: Normal 16-59 (for 3 consecutive months): Chronic kidney disease 15 or less: Kidney failure Glucose Level 59 mg/dL *L 74-118 07/12/2017 6:12am 07/12/2017 9:42am Results called to SRINIVASA MONCADA RN at 0722 on 07/12/17 by Archie Bautista. RB OK. This test has been rerun and double checked for accuracy. Calcium Level 9.0 mg/dL 8.4-10.2 07/12/2017 6:12am 07/12/2017 7:25am Bedside Glucose 201 mg/dL H 70-120 07/12/2017 3:56pm 07/12/2017 4:07pm Meter ID: [id number] Magnesium Level 1.5 MG/DL 1.3-2.1 07/12/2017 6:12am 07/12/2017 7:25am Total Bilirubin 0.7 mg/dL 0.2-1.2 07/10/2017 7:14am 07/10/2017 7:52am Aspartate Amino Transf (AST/SGOT) 15 IU/L 5-34 07/10/2017 7:14am 2017 7:52am Alanine Aminotransferase (ALT/SGPT) 16 IU/L 0-55 07/10/2017 7:14am 05/2017 7:52am Total Protein 7.3 g/dL 6.5-8.1 07/10/2017 7:14am 07/10/2017 7:52am Albumin 2.8 g/dL L 3.5-5.0 07/10/2017 7:14am 07/10/2017 7:52am Globulin 4.5 g/dL H 2.3-3.5 07/10/2017 7:14am 07/10/2017 7:52am Albumin/Globulin Ratio 0.6 L 0.8-2.0 07/10/2017 7:14am 07/10/2017 7: 52am Alkaline Phosphatase 70 IU/L 40-150 07/10/2017 7:14am 07/10/2017 7: 52am Thyroid Stimulating Hormone (TSH) 0.775 uIU/mL 0.350-4.940 07/10/2017 7: 12am 07/10/2017 8:24am Microbiology Results Procedure Source Organism/Result Collection Date/Time Result Date/Time Result Status Blood Culture Blood NO GROWTH AFTER 72 HOURS 1:00pm 07/12/2017 5:57pm Preliminary Procedures Procedure Status Date Provider(s) X-ray of chest, two views Active 07/10/17 CALDERON MARROQUIN MD Encounters Encounter Location Arrival/Admit Date Discharge/Depart Date Attending Provider Discharged Inpatient [facility] 07/09/17 2:23pm 07/12/17 5:20pm PHYLLIS KABA MD
--- OUTSIDE RECORDS SUMMARY | 2017-08-04 12:00 | XMS REPORT | Clinical Summary ---
Author Author [facility] Address Unknown Phone Unavailable Care Team Providers Care Sports Media Name Role Phone PCP Unavailable Allergies No [...] Morbid obesity (HCC) 10/16/2015 Polyneuropathy in diabetes ([facility]) 10/16/2015 Type 2 diabetes mellitus with diabetic neuropathy, unspecified (HCC) 2015 PAD (peripheral artery disease) ([facility]), 100% left LORENZA by hx 10/16/2015 Lumbar [...] recess of lumbar spine (Primary Dx) after 08/03/2016 Family History Medical History Relation Name Comments [...] contrast (05/24/2017 4:01 PM) Specimen Performing Laboratory [place] Narrative FINAL REPORT MRI lumbar spine with [...] 3. Multifocal neuroforaminal stenoses as discussed. Signed: Gabrile Hanson MD Report Verified Date/Time:05/24/2017 16:25:49 Reading Location: [facility] Radiology Reading Room Procedure Note Interface, External Ris In - 05/24/2017 4:28 PM EP SPECIALIST FINAL REPORT MRI lumbar spine with and [...] 3. Multifocal neuroforaminal stenoses as discussed. Signed: aGbriel Hanson MD Report Verified Date/Time: 05/24/2017 16:25:49 Reading Location: [facility] Radiology Reading Room * POC-Creatinine (05/24/2017 3:00 PM) Component Value Ref Range POC-Creatinine 0.8Comment: TESTED AT [address] 0.6 - 1.3 mg/dL [facility] [address] POC-EGFR 69 mL/min/1.73M2 Specimen Performing Laboratory Blood [facility] [address] [address] after 08/03/2016
[2017-08-04] MEDS ORDERED: ALBUTEROL SULF 0.083% NEB SOLN 3 ML NEB NEB STA (12:28)
[2017-08-04] MEDS ORDERED: METHYLPREDNISOLONE SOD SUCC 125 MG/2ML VIAL IV STA (12:28)
[2017-08-04] MEDS ORDERED: NITROGLYCERIN 2% OINT 1 GM PKT TOP ONE (12:30)
[2017-08-04] MEDS ORDERED: IPRATROPIUM BROMIDE 0.02% 2.5 ML NEB NEB ONE (12:30)
[2017-08-04] MEDS ORDERED: ASPIRIN 81 MG CHEW TAB PO STA (12:54)
[2017-08-04 13:02] LABS: BASOPHILS % 0.3 % (0.0-1.0); EOSINOPHILS % 0.5 % (0.0-6.0); HEMATOCRIT 33.8 % (34.2-44.1); HEMOGLOBIN 10.7 g/dL (12.0-16.0); LYMPHOCYTES # (AUTO) 0.9 (1.0-3.2); LYMPHOCYTES % 11.2 % (18.0-39.1); MEAN CORPUSCULAR HEMOGLOBIN 28.3 pg (28-32); MEAN CORPUSCULAR HGB CONC 31.7 g/dL (31-35); MEAN CORPUSCULAR VOLUME 89.4 fL (81-99); MONOCYTES # (AUTO) 0.5 (0.2-0.8); MONOCYTES % 6.3 % (4.4-11.3); NEUTROPHILS # (AUTO) 6.3 (2.1-6.9); NEUTROPHILS % 81.4 % (38.7-80.0); PLATELET COUNT 97 x10e3/uL (140-360); RED BLOOD COUNT 3.78 x10e6/uL (3.6-5.1); RED CELL DISTRIBUTION WIDTH 14.7 % (11.7-14.4)
[2017-08-04 13:19] LABS: INR 1.08; PROTHROMBIN TIME 13.2 seconds (11.9-14.5)
[2017-08-04 13:20] LABS: PARTIAL THROMBOPLASTIN TIME 23.5 seconds (23.8-35.5)
[2017-08-04 13:26] LABS: ALANINE AMINOTRANSFERASE 36 IU/L (0-55); ALBUMIN 2.8 g/dL (3.5-5.0); ALBUMIN/GLOBULIN RATIO 0.6 (0.8-2.0); ALKALINE PHOSPHATASE 81 IU/L (40-150); ANION GAP 11.5 mmol/L (8-16); BLOOD UREA NITROGEN 11 mg/dL (7-26); BUN/CREATININE RATIO 17 (6-25); CALCIUM 9.4 mg/dL (8.4-10.2); CARBON DIOXIDE 36 mmol/L (22-29); CHLORIDE 93 mmol/L (98-107); CREATINE KINASE 32 IU/L (29-168); CREATININE, SERUM 0.64 mg/dL (0.57-1.11); EST GLOMERULAR FILTRATION RATE > 60 ML/MIN (60-); GLUCOSE 121 mg/dL (74-118); MAGNESIUM 1.6 MG/DL (1.3-2.1); POTASSIUM 4.5 mmol/L (3.5-5.1); SODIUM 136 mmol/L (136-145)
--- NOTE | 2017-08-04 13:30 | Diagnostic Imaging Report ---
PROCEDURE: CHEST SINGLE (PORTABLE) COMPARISON: Patients [facility], DX, CHEST SINGLE (PORTABLE), 07/12/2017, 5:46. INDICATIONS: SHORTNESS OF BREATH FINDINGS: LUNGS: Mild pulmonary vascular congestion. PLEURA: No effusions or pneumothorax. HEART \T\ MEDIASTINUM: The heart is enlarged. BONES \T\ SOFT TISSUES: No acute findings. CONCLUSION: Cardiomegaly with mild pulmonary vascular congestion. Gurjit Joe D.O. Dictated by: Gurjit Joe D.O. on 08/04/2017 at 13:31 Electronically approved by: Gurjit Joe D.O. on 08/04/2017 at 13:31
[2017-08-04 14:40] LABS: CLARITY,URINE CLEAR (CLEAR); COLOR,URINE YELLOW (YELLOW)
[2017-08-04 14:41] LABS: LEUKOCYTE ESTERASE ,URINE NEGATIVE (NEGATIVE); NITRITE,URINE NEGATIVE (NEGATIVE)
[2017-08-04 14:42] LABS: BILIRUBIN,URINE NEGATIVE (NEGATIVE); KETONES,URINE NEGATIVE (NEGATIVE); PROTEIN,URINE DIPSTICK 2+ (NEGATIVE); URINE UROBILINOGEN 1 mg/dL (0.2 - 1)
[2017-08-04] MEDS ORDERED: ONDANSETRON HCL 4 MG ORAL DISINTEGRATING TAB PO PRN (14:45)
[2017-08-04] MEDS ORDERED: MORPHINE SULFATE 2 MG/ML SYR IV PRN (14:45)
[2017-08-04] MEDS ORDERED: DEXTROSE 50% SYRINGE 50 ML IV PRN (14:45)
[2017-08-04 14:52] LABS: EPITHELIAL CELLS,URINE MANY /LPF; RBC,URINE 0-5 /HPF (0-5); WBC,URINE (MAN) 0-5 /HPF (0-5)
[2017-08-04 14:53] LABS: YEAST,URINE FEW
[2017-08-04] MEDS ORDERED: FAMOTIDINE 20 MG/2 ML VIAL IV SCH (15:00)
[2017-08-04] MEDS ORDERED: NITROGLYCERIN 2% OINT 1 GM PKT TOP SCH (15:00)
--- OUTSIDE RECORDS SUMMARY | 2017-08-04 15:13 | XMS REPORT | Clinical Summary ---
Author Author [facility] Address Unknown Phone Unavailable Care Team Providers Care Nurses Assistant Name Role Phone PCP Unavailable Allergies No [...] Morbid obesity (HCC) 10/16/2015 Polyneuropathy in diabetes ([facility]) 10/16/2015 Type 2 diabetes mellitus with diabetic neuropathy, unspecified (HCC) 2015 PAD (peripheral artery disease) ([facility]), 100% left LORENZA by hx [...] contrast (05/24/2017 4:01 PM) Specimen Performing Laboratory [place] Narrative FINAL REPORT MRI lumbar spine with [...] Multifocal neuroforaminal stenoses as discussed. Signed: Gabriel Hanson MD Report Verified Date/Time:05/24/2017 16:25:49 Reading Location: [facility] Radiology Reading Room Procedure Note Interface, External Ris In - 05/24/2017 4:28 PM FIXED WING PILOT FINAL REPORT MRI lumbar spine with and [...] Multifocal neuroforaminal stenoses as discussed. Signed: Gabriel Hanson MD Report Verified Date/Time: 05/24/2017 16:25:49 Reading Location: [facility] Radiology Reading Room * POC-Creatinine (05/24/2017 3:00 PM) Component Value Ref Range POC-Creatinine 0.8Comment: TESTED AT [address] 0.6 - 1.3 mg/dL [facility] [address] POC-EGFR 69 mL/min/1.73M2 Specimen Performing Laboratory Blood [facility] [address] [address] after 08/03/2016
[2017-08-04] MEDS: ALBUTEROL SULF 0.083% NEB SOLN 3 ML NEB NEB SCH ×3 (15:47→23:03)
[2017-08-04] MEDS: IPRATROPIUM BROMIDE 0.02% 2.5 ML NEB NEB SCH ×3 (15:47→23:03)
[2017-08-04] MEDS: INSULIN REGULAR, HUMAN 100 UNIT/1 ML 3ML VIAL SQ SCH ×2 (16:30→21:00)
[2017-08-04 18:13] VITALS: BP 158/72
[2017-08-04] MEDS ORDERED: ACETAMINOPHEN/CODEINE 300MG - 30MG TAB PO PRN (18:15)
[2017-08-04] MEDS: FUROSEMIDE INJ 10 MG/ML 4 ML VIAL IV SCH (18:30)
[2017-08-04 18:34] VITALS: BP 158/72
[2017-08-04 20:00] VITALS: BP 186/77
[2017-08-04 20:50] VITALS: BP 186/77
[2017-08-04] MEDS: NIFEDIPINE CR 30 MG TAB PO SCH (20:50)
[2017-08-04] MEDS ORDERED: METHYLPREDNISOLONE SOD SUCC 125 MG/2ML VIAL IV SCH (22:00)
[2017-08-04] MEDS: HYDRALAZINE HCL 20 MG/ML VIAL IV PRN (23:22)
[2017-08-05] VITALS (8 sets, daily range): BP systolic 163–191; BP diastolic 69–78
[2017-08-05] MEDS: IPRATROPIUM BROMIDE 0.02% 2.5 ML NEB NEB SCH ×6 (02:40→23:40)
[2017-08-05] MEDS: ALBUTEROL SULF 0.083% NEB SOLN 3 ML NEB NEB SCH ×5 (02:40→23:40)
--- NOTE | 2017-08-05 07:40 | Diagnostic Imaging Report ---
EXAMINATION: Chest, CHEST SINGLE (PORTABLE) INDICATION: Chest pain COMPARISON: Portable chest 08/04/2017 FINDINGS: LINES: None. Heart: Normal cardiac silhouette. Vascular: The pulmonary vasculature is within normal limits. Atherosclerotic calcifications of the aortic arch. Mediastinum: No mediastinal, hilar, or axillary mass or lymphadenopathy. Lungs: No parenchymal mass. No focal consolidation. Bibasilar atelectasis. Pleura: No pleural effusion. No pneumothorax. Bones: No acute osseous abnormality. Degenerative changes of the thoracic spine. Soft tissues: Normal. Impression: No acute radiographic abnormality. Signed by: Dr. Jose Gamez M.D. on 08/05/2017 7:36 AM
[2017-08-05] MEDS: GABAPENTIN 300 MG CAP PO SCH ×2 (08:00→12:32)
[2017-08-05 08:07] LABS: BASOPHILS % 0.1 % (0.0-1.0); HEMATOCRIT 34.4 % (34.2-44.1); HEMOGLOBIN 10.9 g/dL (12.0-16.0); LYMPHOCYTES # (AUTO) 0.6 (1.0-3.2); LYMPHOCYTES % 7.3 % (18.0-39.1); MEAN CORPUSCULAR HEMOGLOBIN 28.2 pg (28-32); MEAN CORPUSCULAR HGB CONC 31.7 g/dL (31-35); MEAN CORPUSCULAR VOLUME 88.9 fL (81-99); MONOCYTES # (AUTO) 0.4 (0.2-0.8); MONOCYTES % 5.1 % (4.4-11.3); NEUTROPHILS # (AUTO) 7.2 (2.1-6.9); PLATELET COUNT 110 x10e3/uL (140-360); RED BLOOD COUNT 3.87 x10e6/uL (3.6-5.1); RED CELL DISTRIBUTION WIDTH 15.1 % (11.7-14.4)
[2017-08-05 08:34] LABS: ALANINE AMINOTRANSFERASE 30 IU/L (0-55); ALBUMIN 2.7 g/dL (3.5-5.0); ALBUMIN/GLOBULIN RATIO 0.6 (0.8-2.0); ALKALINE PHOSPHATASE 81 IU/L (40-150); ANION GAP 15.1 mmol/L (8-16); BLOOD UREA NITROGEN 14 mg/dL (7-26); BUN/CREATININE RATIO 19 (6-25); CALCIUM 9.7 mg/dL (8.4-10.2); CARBON DIOXIDE 35 mmol/L (22-29); CHLORIDE 91 mmol/L (98-107); CHOL/HDL RATIO 2.5 (3.0-3.6); CHOLESTEROL 95 MD/DL (0-199); CREATININE, SERUM 0.74 mg/dL (0.57-1.11); EST GLOMERULAR FILTRATION RATE > 60 ML/MIN (60-); GLUCOSE 272 mg/dL (74-118); HDL CHOLESTEROL 38 MG/DL (40-60); LDL CHOLESTEROL 47 MG/DL (60-130); POTASSIUM 4.1 mmol/L (3.5-5.1); SODIUM 137 mmol/L (136-145); TRIGLYCERIDES 50 MG/DL (0-149)
[2017-08-05] MEDS: LISINOPRIL 10 MG TAB PO SCH (09:00)
[2017-08-05] MEDS ORDERED: PREDNISONE 20 MG TAB PO SCH (09:00)
[2017-08-05] MEDS: FUROSEMIDE INJ 10 MG/ML 4 ML VIAL IV SCH ×2 (09:00→21:37)
[2017-08-05] MEDS: ASPIRIN 81 MG ENTERIC COATED PO SCH (09:00)
[2017-08-05] MEDS: INSULIN REGULAR, HUMAN 100 UNIT/1 ML 3ML VIAL SQ SCH ×4 (09:43→21:37)
--- NOTE | 2017-08-05 12:57 | Diagnostic Imaging Report ---
EXAM: CT Chest WITH contrast INDICATION: Chest pain COMPARISON: None available TECHNIQUE: Chest was scanned utilizing a multidetector helical scanner from the lung apex through the level of the diaphragm after administration of IV contrast. Coronal and sagittal reconstructions were submitted for interpretation. Protocol: General survey IV CONTRAST: 100 mL of Isovue 370 COMPLICATIONS: None RADIATION DOSE: Total exam DLP: 894.5 mGy*cm. CTDIvol has been reviewed. It is below the limits set by the Radiation Protocol Committee (RPC). FINDINGS: LINES/ TUBES: None. Heart: No cardiomegaly. No pericardial effusion. Vessels: Limited evaluation of the pulmonary arteries due to the contrast bolus timing. No filling defect is present in the main pulmonary artery. Atherosclerotic calcifications of the thoracic aorta and coronary arteries. Mediastinum: No mediastinal or hilar mass or lymphadenopathy. Normal thyroid. Lungs: No parenchymal mass. No focal consolidation. Bilateral lower lobe atelectasis. Pleura: Moderate bilateral pleural effusions. No pneumothorax. Soft tissues: Normal. No axillary mass or lymphadenopathy. Bones: No acute osseous abnormality. Degenerative changes of the thoracic spine. Adrenal glands: No adrenal nodules.. Abdomen: The partially visualized portions of the upper abdomen are unremarkable.. IMPRESSION: 1. Bilateral pleural effusions. 2. Limited evaluation of the pulmonary arteries. Signed by: Dr. Jose Gamez M.D. on 08/05/2017 12:53 PM
[2017-08-05] MEDS ORDERED: SODIUM CHLORIDE 0.9% 250ML 250 ML ONE (15:34)
[2017-08-05] MEDS: SALINE 0.65% NAS SOLN 1 SPRAY BTL SCH ×3 (15:40→21:37)
[2017-08-05] MEDS: NIFEDIPINE CR 30 MG TAB PO SCH ×2 (15:40→21:37)
[2017-08-05] MEDS: HYDRALAZINE HCL 20 MG/ML VIAL IV PRN (15:42)
--- NOTE | 2017-08-05 15:55 | Progress Note ---
DATE: August 05, 2017 PULMONARY MEDICINE PROGRESS NOTE SUBJECTIVE: Mrs. Caputo was seen and examined at bedside. She continues to have a lot of intermittent coughing. Oxygen saturation 96%. Two liters per minute by nasal cannula. One bowel movement achieved. CT chest was done, and I have reviewed. Pulmonary artery diameter 31 mm, but otherwise lungs are mostly unremarkable and there were mild to moderate pleural effusions, slightly larger in the left side. REVIEW OF SYSTEMS: No headaches, no rash. OBJECTIVE VITAL SIGNS: Afebrile. Vital signs noted per electronic record. GENERALLY: No acute distress, alert and calm. HEENT: Normocephalic, atraumatic. NECK: Supple. Throat midline. LUNGS: Bilateral air entry, decreased breath sounds, rare rhonchi. CARDIOVASCULAR: S1 and S2. No murmurs, rubs or gallops. ABDOMINAL: Soft, nontender. EXTREMITIES: No clubbing, no cyanosis. There is still the trace edema, 1+ edema. INTEGUMENT: No rash. No purpura. LABS: BUN 14, creatinine 0.7. White count 8, hematocrit 34, platelets 110. IMPRESSION AND PLAN 1. Emergency hypertension. 2. Diastolic dysfunction. 3. Pleural effusions, transudative hydrostatic pulmonary edema. 4. Obesity, rule out obesity-hypoventilation syndrome. 5. Former smoker, rule out chronic obstructive pulmonary disease. 6. High suspicion of obstructive sleep apnea. Continue diuresis. Repeat electrolytes in the morning. Control blood pressure. Outpatient sleep studies. Continue oxygen for assist at this time. Patient counseled on need to participate with medicine planning and treatment planning so she could have the best health outcomes. Job#: [id number] EV
[2017-08-05] MEDS ORDERED: MAGNESIUM SULFATE 2GM/50ML 50 ML IV ONE (16:00)
--- NOTE | 2017-08-05 16:15 | Consultation ---
DATE OF CONSULTATION: August 05, 2017 OTOLARYNGOLOGY CONSULTATION HISTORY OF PRESENT ILLNESS: I was kindly asked to see this 81-year-old woman who presented with a history of wheezing and shortness of breath as well as rhinorrhea significantly worse in the evening and first thing in the morning. She has a history of previous pneumonia and congestive heart failure. Her history of present illness, past medical history and past surgical history were reviewed in detail on the chart and are pertinent as above. PHYSICAL EXAMINATION: The external auditory canals have a moderate amount of cerumen bilaterally. The visualized portions of the tympanic membranes are unremarkable. She has a mild to moderate nasal septal deviation to the left. There is edema of the nasal mucosa. There is thick mucus within the nasal cavity. She is noted to have a long soft palate and redundant folds of hyperpharyngeal mucosa. She has enlarged base of tongue. There is no palpable cervical adenopathy. On fiberoptic diagnostic rhinoscopy, she has thick mucus in the nasal cavity but the ostiomeatal complex appears unremarkable bilaterally. On fiberoptic laryngoscopy, she has normal vocal cord motion. There is edema of the posterior commissure of the larynx. There is no mass lesion noted. ASSESSMENT 1. No evidence of upper airway obstruction contributing to her wheezing and shortness of breath. 2. Probable obstructive sleep apnea. 3. Chronic rhinitis with no evidence of acute sinusitis. PLAN 1. Ipratropium bromide 0.06%, two puffs each side of nose t.i.d. 2. Fluticasone 2 puffs each side of nose daily. 3. Onycha Nasal [place] 2 puffs each side of nose q.4 h. while awake. 4. Addition of heated humidification to her nasal prong oxygen. 5. Outpatient sleep study was recommended. Job#: [id number] EV
[2017-08-05] MEDS ORDERED: SODIUM CHLORIDE 0.9% 50ML 50 ML ONE (18:22)
[2017-08-05] MEDS ORDERED: IOPAMIDOL 370 MG/ML 200 ML INFUS..BTL INJ ONE (18:22)
[2017-08-05] MEDS: ENOXAPARIN SOD INJ 40 MG/0.4 ML SYR SC SCH (18:30)
--- NOTE | 2017-08-05 20:00 | Consultation ---
DATE OF CONSULTATION: August 04, 2017 PULMONARY MEDICINE CONSULT NOTE Ms. Caputo is seen and examined at bedside. PRIMARY DOCTOR: Dr. Linder with [facility]. HOSPITAL DOCTOR: Dr. Alireza Cook CHIEF COMPLAINT: Wheezing. HISTORY: Ms. Caputo is a pleasant 81-year-old female with shortness of breath. Patient had wheezing over last 3 days. Patient with recent hospitalization since been a month ago due to hypertensive emergency room. Patient was treated for pneumonia, diastolic dysfunction, and was still on home oxygen with saturation of 87% at rest in room air at discharge. Patient with chronic smoking history and was never proven to have COPD yet. Patient remains hoping to avoid health care assessment intervention and she really feels very ill. Patient has turned down home therapy and home nursing. Patient states that she has missed medications on many occasions in last few days. Patient still has not had sleep studies done, although she did talk to her doctor about it, but it was noted that she was not in any condition to get this done. At this time, she presents to the emergency room. At 194/98 her blood pressure in the emergency room. Chest x-ray with pneumonitis, fibrosis versus mild venous pulmonary congestion. She is admitted here. I am consulted. REVIEW OF SYSTEMS GENERAL: No acute distress. OPHTHALMOLOGIC: No double vision. ENT: No dry mouth. IMMUNOLOGIC: No allergies. PULMONARY: No asthma. CARDIAC: No heart attacks. GI: No constipation. : No blood in urine. INTEGUMENT: No rashes. MUSCULOSKELETAL: Mild arthritis. NEUROLOGIC: No seizures. PAST MEDICAL HISTORY: Obesity, hypertension, diabetes, hyperlipidemia, breast cancer status post left mastectomy, neuropathy, recently diagnosed rheumatoid arthritis that was in a few months ago, not on medication for it yet. MEDICATIONS: Medication list reviewed per electronic record. ALLERGIES: NO KNOWN DRUG ALLERGIES DEFINITE ALTHOUGH THERE IS A MUSCLE RELAXANT POSSIBLY CAUSING ALLERGIES. SOCIAL HISTORY: No alcohol, no drugs. Patient smoked from age [age], one pack per day, but she quit 20 years ago. Patient formerly works in a flower shop and currently lives with her daughter. FAMILY HISTORY: Noncontributory. OBJECTIVE: VITAL SIGNS: Afebrile, vital signs noted per electronic record. GENERAL: In no acute distress, alert and calm, talking in full sentences. HEENT: Normocephalic, atraumatic. NECK: Supple. Throat midline. LUNGS: Bilateral air entry, few rhonchi, rare wheezes. CARDIOVASCULAR: S1, S2. No murmurs, rubs or gallops. ABDOMEN: Soft, nontender, obese. EXTREMITIES: No clubbing, no cyanosis, there is 1+ edema. INTEGUMENT: No rash, no purpura. LABS: 4.5 potassium, 36 bicarbonate, 11 BUN, 0.6 creatinine. 8 white count, 34 hematocrit, 97,000 platelets. Albumin 0.8. BNP is 190. IMPRESSIONS AND PLAN 1. Recent wheezes, most likely component of diastolic dysfunction. 2. Treat for emergency hypertension. Medicine nonadherent. 3. Chronic hypoxemia, probably multifactorial. 4. Former smoker, possible suspected chronic obstructive pulmonary disease. 5. Obesity, cannot rule out obesity hypoventilation. 6. Abnormal chest x-ray. Faint interstitial markings. Cannot rule out lung fibrosis. 7. Obesity, suspect obstructive sleep apnea. 8. Other medical history as above. Given the readmission, it is reasonable to go ahead and do a CAT scan at this point. CTA angiography seems reasonable and this has been ordered. Continue oxygen supplement. Patient to recommend for maintenance with vaccines and continue home oxygen use. Sleep study as outpatient. Diuretics to be resumed now. Continue blood pressure control. Follow up the thrombocytopenia. Eventually, she may need an assessment for liver disease and this can also cause low oxygen levels via shunting methods, although this can be done easily as outpatient. Bronchodilators. DVT prophylaxis. I would like to thank Dr. Cook and Dr. Linder for the chance to participate in the care of Ms. Caputo. Do not hesitate to contact me if I could help in any way. Job#: [id number] CQ [id number]
[2017-08-05] MEDS ORDERED: INSULIN DETEMIR 100 UNIT/ML PEN SQ SCH (21:00)
[2017-08-05] MEDS: IPRATROPIUM BROMIDE 0.06% 42 MCG NASPR NS SCH ×2 (21:37→23:03)
[2017-08-06] VITALS (7 sets, daily range): BP systolic 128–154; BP diastolic 56–68
[2017-08-06] MEDS: IPRATROPIUM BROMIDE 0.02% 2.5 ML NEB NEB SCH ×6 (02:34→22:30)
[2017-08-06] MEDS: ALBUTEROL SULF 0.083% NEB SOLN 3 ML NEB NEB SCH ×6 (02:34→22:30)
[2017-08-06] MEDS: SALINE 0.65% NAS SOLN 1 SPRAY BTL SCH ×5 (05:44→21:53)
[2017-08-06 07:46] LABS: BASOPHILS % 0.1 % (0.0-1.0); EOSINOPHILS % 0.2 % (0.0-6.0); HEMATOCRIT 32.3 % (34.2-44.1); HEMOGLOBIN 10.4 g/dL (12.0-16.0); LYMPHOCYTES # (AUTO) 1.3 (1.0-3.2); LYMPHOCYTES % 13.7 % (18.0-39.1); MEAN CORPUSCULAR HEMOGLOBIN 28.4 pg (28-32); MEAN CORPUSCULAR HGB CONC 32.2 g/dL (31-35); MEAN CORPUSCULAR VOLUME 88.3 fL (81-99); MONOCYTES # (AUTO) 0.8 (0.2-0.8); MONOCYTES % 8.2 % (4.4-11.3); NEUTROPHILS # (AUTO) 7.6 (2.1-6.9); NEUTROPHILS % 77.4 % (38.7-80.0); PLATELET COUNT 132 x10e3/uL (140-360); RED BLOOD COUNT 3.66 x10e6/uL (3.6-5.1); RED CELL DISTRIBUTION WIDTH 15.8 % (11.7-14.4)
[2017-08-06] MEDS: GABAPENTIN 300 MG CAP PO SCH ×2 (08:01→11:42)
[2017-08-06 08:40] LABS: BLOOD UREA NITROGEN 24 mg/dL (7-26); BUN/CREATININE RATIO 31 (6-25); CALCIUM 9.3 mg/dL (8.4-10.2); CARBON DIOXIDE 40 mmol/L (22-29); CHLORIDE 89 mmol/L (98-107); CREATININE, SERUM 0.77 mg/dL (0.57-1.11); EST GLOMERULAR FILTRATION RATE > 60 ML/MIN (60-); GLUCOSE 187 mg/dL (74-118); MAGNESIUM 1.6 MG/DL (1.3-2.1); SODIUM 138 mmol/L (136-145)
[2017-08-06] MEDS: FUROSEMIDE INJ 10 MG/ML 4 ML VIAL IV SCH ×2 (08:56→16:17)
[2017-08-06] MEDS: PREDNISONE 20 MG TAB PO SCH (08:56)
[2017-08-06] MEDS: LISINOPRIL 10 MG TAB PO SCH (08:56)
[2017-08-06] MEDS: NIFEDIPINE CR 30 MG TAB PO SCH ×2 (08:56→21:53)
[2017-08-06] MEDS: ASPIRIN 81 MG ENTERIC COATED PO SCH (08:56)
[2017-08-06] MEDS: FLUTICASONE PROPIONATE NASAL SPRAY NS SCH (09:00)
[2017-08-06] MEDS: IPRATROPIUM BROMIDE 0.06% 42 MCG NASPR NS SCH ×3 (09:00→23:11)
[2017-08-06] MEDS: INSULIN REGULAR, HUMAN 100 UNIT/1 ML 3ML VIAL SQ SCH ×4 (09:31→21:53)
--- NOTE | 2017-08-06 16:01 | Progress Note ---
DATE: August 06, 2017 PULMONARY MEDICINE PROGRESS NOTE SUBJECTIVE: Ms. Caputo was seen and examined at bedside. She continues to have some coughing, some shortness of breath on mobilization, 96% oxygen saturation on 2 liters per minute by nasal cannula. She did have a bowel movement. REVIEW OF SYSTEMS: No headaches, no diarrhea. OBJECTIVE VITAL SIGNS: Afebrile. Vital signs noted per electronic record. GENERAL: In no apparent distress, alert and calm. HEENT: Normocephalic, atraumatic. NECK: Supple. Throat midline. LUNGS: Bilateral air entry, few rhonchi, good air entry. CARDIOVASCULAR: S1 and S2 and no murmurs, rubs or gallops. ABDOMEN: Soft and nontender. Obese. EXTREMITIES: No clubbing and no cyanosis. There is 1+ edema. INTEGUMENT: No rash, no purpura. LABORATORY DATA: BUN 24, creatinine 0.8, bicarbonate 40, white count 10, hematocrit 32, platelets 132,000. IMPRESSION 1. Congestive heart failure, diastolic. 2. Pleural effusions. 3. Emergency hypertension. 4. Weakness. PLAN: At this time, will continue diuretics. Blood pressure control is a must. There is no indication for antibiotics and we can follow with these on hold. Continue to wean down the prednisone slowly for the possibility of COPD or asthma. The patient is recommended for outpatient PFTs and outpatient sleep studies. Job#: [id number]
[2017-08-06] MEDS: ENOXAPARIN SOD INJ 40 MG/0.4 ML SYR SC SCH (16:17)
[2017-08-06] MEDS: INSULIN DETEMIR 100 UNIT/ML PEN SQ SCH (16:17)
[2017-08-07] VITALS (8 sets, daily range): BP systolic 116–159; BP diastolic 53–67
[2017-08-07] MEDS: IPRATROPIUM BROMIDE 0.02% 2.5 ML NEB NEB SCH ×6 (01:44→22:45)
[2017-08-07] MEDS: SALINE 0.65% NAS SOLN 1 SPRAY BTL SCH ×5 (05:10→21:50)
[2017-08-07] MEDS: ALBUTEROL SULF 0.083% NEB SOLN 3 ML NEB NEB SCH ×4 (07:00→22:45)
[2017-08-07 07:25] LABS: BASOPHILS % 0.2 % (0.0-1.0); EOSINOPHILS # (AUTO) 0.1 (0.0-0.4); EOSINOPHILS % 0.6 % (0.0-6.0); HEMATOCRIT 33.2 % (34.2-44.1); HEMOGLOBIN 10.7 g/dL (12.0-16.0); LYMPHOCYTES # (AUTO) 1.6 (1.0-3.2); LYMPHOCYTES % 17.4 % (18.0-39.1); MEAN CORPUSCULAR HEMOGLOBIN 28.2 pg (28-32); MEAN CORPUSCULAR HGB CONC 32.2 g/dL (31-35); MEAN CORPUSCULAR VOLUME 87.6 fL (81-99); MONOCYTES % 10.7 % (4.4-11.3); NEUTROPHILS # (AUTO) 6.3 (2.1-6.9); NEUTROPHILS % 70.8 % (38.7-80.0); PLATELET COUNT 105 x10e3/uL (140-360); RED BLOOD COUNT 3.79 x10e6/uL (3.6-5.1); RED CELL DISTRIBUTION WIDTH 15.9 % (11.7-14.4)
[2017-08-07] MEDS: INSULIN REGULAR, HUMAN 100 UNIT/1 ML 3ML VIAL SQ SCH ×4 (07:30→21:20)
[2017-08-07 07:44] LABS: ANION GAP 11.7 mmol/L (8-16); BLOOD UREA NITROGEN 26 mg/dL (7-26); BUN/CREATININE RATIO 36 (6-25); CALCIUM 9.2 mg/dL (8.4-10.2); CHLORIDE 90 mmol/L (98-107); CREATININE, SERUM 0.73 mg/dL (0.57-1.11); EST GLOMERULAR FILTRATION RATE > 60 ML/MIN (60-); GLUCOSE 102 mg/dL (74-118); MAGNESIUM 1.6 MG/DL (1.3-2.1); POTASSIUM 3.7 mmol/L (3.5-5.1); SODIUM 139 mmol/L (136-145)
[2017-08-07 08:04] LABS: CARBON DIOXIDE 41 mmol/L (22-29)
[2017-08-07] MEDS: PREDNISONE 20 MG TAB PO SCH (08:23)
[2017-08-07] MEDS: FLUTICASONE PROPIONATE NASAL SPRAY NS SCH (08:23)
[2017-08-07] MEDS: GABAPENTIN 300 MG CAP PO SCH ×2 (08:23→12:10)
[2017-08-07] MEDS: LISINOPRIL 10 MG TAB PO SCH (08:23)
[2017-08-07] MEDS: ASPIRIN 81 MG ENTERIC COATED PO SCH (08:23)
[2017-08-07] MEDS: FUROSEMIDE INJ 10 MG/ML 4 ML VIAL IV SCH ×2 (08:23→17:14)
[2017-08-07] MEDS: NIFEDIPINE CR 30 MG TAB PO SCH ×2 (08:24→21:19)
--- NOTE | 2017-08-07 11:52 | Diagnostic Imaging Report ---
PROCEDURE: A single AP view of the chest. COMPARISON: Patients [facility], , CHEST SINGLE (PORTABLE), 08/05/2017, 6:28. INDICATIONS: COUGH, COPD FINDINGS: Lines/tubes: None. Lungs: Mild bilateral central pulmonary venous congestion. There is no evidence of pneumonia or pulmonary edema. Pleura: There is no pleural effusion or pneumothorax. Heart and mediastinum: The cardiac silhouette is mildly enlarged. Calcification of the aortic arch. Bones: No acute bony abnormality. IMPRESSION: 1. Mild bilateral central pulmonary venous congestion. Yuliet Vasquez M.D. Dictated by: Yuliet Vasquez M.D. on 08/07/2017 at 11:54 Electronically approved by: Yuliet Vasquez M.D. on 08/07/2017 at 11:54
[2017-08-07] MEDS: ENOXAPARIN SOD INJ 40 MG/0.4 ML SYR SC SCH (17:14)
[2017-08-07] MEDS: DOCUSATE SODIUM 100 MG CAP PO SCH (21:19)
[2017-08-07] MEDS: INSULIN DETEMIR 100 UNIT/ML PEN SQ SCH (21:20)
--- NOTE | 2017-08-07 21:46 | Progress Note ---
DATE: August 07, 2017 PULMONARY MEDICINE PROGRESS NOTE SUBJECTIVE: Mrs. Caputo was seen and examined at bedside. She continues to have some weakness. Her current oxygen setting is at 2.5 liters per minute per nasal cannula. She was able to walk to the restroom. The patient is eating already. The patient still with lot of questions regarding her slow progress. REVIEW OF SYSTEMS: No bleeding, no rash. OBJECTIVE VITAL SIGNS: Afebrile. Vital signs noted per the chart record. VITAL SIGNS: Afebrile. Vital signs noted per electronic record. GENERAL: In no apparent distress, alert and calm. HEENT: Normocephalic, atraumatic. NECK: Supple. Throat midline. LUNGS: Bilateral air entry, rare rhonchi, better than before. CARDIOVASCULAR: S1 and S2 and no murmurs, rubs or gallops. ABDOMEN: Soft and nontender. EXTREMITIES: No clubbing or cyanosis. There is the 1+ edema. INTEGUMENT: No rash, no purpura. Chest x-ray with mild venous congestion pattern. IMPRESSION 1. Fluid overload. 2. Pleural effusion, small. 3. Asthma versus chronic obstructive pulmonary disease, likely, treat with exacerbation. 4. Obesity, possible obesity-hypoventilation syndrome. 5. Suspected obstructive sleep apnea. PLAN: Continue to mobilize the patient. Help her regain her strength. potassium repletion. Add some Diamox for the increasing alkalosis. Continue oxygen as well. She is already on home oxygen. Job#: [id number]
[2017-08-08] MEDS: IPRATROPIUM BROMIDE 0.02% 2.5 ML NEB NEB SCH ×6 (03:25→23:52)
[2017-08-08] MEDS: ALBUTEROL SULF 0.083% NEB SOLN 3 ML NEB NEB SCH ×6 (03:25→23:52)
[2017-08-08 05:37] VITALS: BP 118/51
[2017-08-08] MEDS: SALINE 0.65% NAS SOLN 1 SPRAY BTL SCH ×5 (06:00→22:00)
[2017-08-08 07:35] VITALS: BP 118/51
[2017-08-08 07:48] VITALS: BP 134/62
[2017-08-08] MEDS: IPRATROPIUM BROMIDE 0.06% 42 MCG NASPR NS SCH ×4 (08:10→20:54)
[2017-08-08] MEDS: GABAPENTIN 300 MG CAP PO SCH ×2 (08:11→12:00)
[2017-08-08] MEDS: DOCUSATE SODIUM 100 MG CAP PO SCH ×2 (08:11→17:00)
[2017-08-08] MEDS: ACETAZOLAMIDE 250 MG TAB PO SCH (08:11)
[2017-08-08] MEDS: FUROSEMIDE INJ 10 MG/ML 4 ML VIAL IV SCH ×2 (08:11→17:25)
[2017-08-08] MEDS: FLUTICASONE PROPIONATE NASAL SPRAY NS SCH (08:11)
[2017-08-08] MEDS: LISINOPRIL 10 MG TAB PO SCH (08:11)
[2017-08-08] MEDS: ASPIRIN 81 MG ENTERIC COATED PO SCH (08:11)
[2017-08-08] MEDS: PREDNISONE 10 MG TAB PO SCH (08:11)
[2017-08-08] MEDS: INSULIN REGULAR, HUMAN 100 UNIT/1 ML 3ML VIAL SQ SCH ×4 (08:11→20:55)
[2017-08-08] MEDS: NIFEDIPINE CR 30 MG TAB PO SCH ×2 (08:12→20:54)
[2017-08-08] MEDS ORDERED: PREDNISONE 20 MG TAB PO SCH (09:00)
[2017-08-08] MEDS ORDERED: ACETAZOLAMIDE 500 MG CAP PO SCH (09:00)
[2017-08-08 11:23] VITALS: BP 116/56
--- NOTE | 2017-08-08 13:38 | Progress Note ---
DATE: August 08, 2017 PULMONARY MEDICINE PROGRESS NOTE SUBJECTIVE: Ms. Caputo was seen and examined at bedside. She continues to have a lot of early dyspnea on mobilization. However, she was able to mobilize in the room. The patient remains on oxygen at this time by nasal cannula. She is eating well once again. REVIEW OF SYSTEMS: No headache. No rash. OBJECTIVE VITAL SIGNS: Afebrile. Vital signs noted per the electronic record. GENERAL: In no acute distress, alert and calm. HEENT: Normocephalic, atraumatic. NECK: Supple. Throat midline. LUNGS: Bilateral air entry, a few rhonchi. CARDIOVASCULAR: S1 and S2. No murmurs, rubs or gallops. ABDOMEN: Soft and nontender. EXTREMITIES: No clubbing. No cyanosis. There is 1+ edema. INTEGUMENT: No rash, no purpura. LABS: No new updates. IMPRESSION AND PLAN 1. Diastolic dysfunction. 2. Emergency hypertension. 3. Pleural effusion secondary to fluid overload. 4. Possible asthma versus chronic obstructive pulmonary disease with exacerbation. 5. Obesity, possible obesity-hypoventilation, suspected sleep apnea. Continue current treatment. Continue diuretics. Wean steroids. Bronchodilators. Mobilize the patient. If she continues to get better, will consider discharge tomorrow. Job#: [id number]
[2017-08-08 15:31] VITALS: BP 123/55
[2017-08-08] MEDS: ENOXAPARIN SOD INJ 40 MG/0.4 ML SYR SC SCH (17:26)
[2017-08-08 20:00] VITALS: BP_SYST 14; BP_SYST 140; BP_DIAS 60
[2017-08-08] MEDS: INSULIN DETEMIR 100 UNIT/ML PEN SQ SCH (20:55)
[2017-08-09 00:10] VITALS: BP 136/60
[2017-08-09] MEDS: ALBUTEROL SULF 0.083% NEB SOLN 3 ML NEB NEB SCH ×2 (03:20→07:30)
[2017-08-09] MEDS: IPRATROPIUM BROMIDE 0.02% 2.5 ML NEB NEB SCH ×2 (03:20→07:30)
[2017-08-09 04:38] VITALS: BP 133/61
[2017-08-09] MEDS: SALINE 0.65% NAS SOLN 1 SPRAY BTL SCH ×2 (06:00→09:30)
--- NOTE | 2017-08-09 06:11 | Diagnostic Imaging Report ---
EXAM: CHEST SINGLE (PORTABLE), AP 1 view INDICATION: COPD exacerbation COMPARISON: AP view of the chest August 05, 2017 FINDINGS: LINES/TUBES: None LUNGS: Lungs are poorly visualized. PLEURA: Possible small left pleural effusion. HEART AND MEDIASTINUM: The heart is within normal size limits. Central pulmonary artery enlargement. BONES AND SOFT TISSUES: No acute findings. IMPRESSION: Limited evaluation of the lungs due to body habitus and technique. Enlargement of the central pulmonary arteries. Signed by: Dr. Kate Garcia M.D. on 08/09/2017 6:08 AM
[2017-08-09 07:28] LABS: BASOPHILS % 0.2 % (0.0-1.0); EOSINOPHILS # (AUTO) 0.2 (0.0-0.4); HEMATOCRIT 36.5 % (34.2-44.1); HEMOGLOBIN 11.4 g/dL (12.0-16.0); LYMPHOCYTES # (AUTO) 1.7 (1.0-3.2); LYMPHOCYTES % 20.5 % (18.0-39.1); MEAN CORPUSCULAR HEMOGLOBIN 27.5 pg (28-32); MEAN CORPUSCULAR HGB CONC 31.2 g/dL (31-35); MEAN CORPUSCULAR VOLUME 88.2 fL (81-99); MONOCYTES # (AUTO) 0.9 (0.2-0.8); MONOCYTES % 10.5 % (4.4-11.3); NEUTROPHILS # (AUTO) 5.4 (2.1-6.9); NEUTROPHILS % 66.6 % (38.7-80.0); RED BLOOD COUNT 4.14 x10e6/uL (3.6-5.1); RED CELL DISTRIBUTION WIDTH 15.8 % (11.7-14.4)
[2017-08-09] MEDS: INSULIN REGULAR, HUMAN 100 UNIT/1 ML 3ML VIAL SQ SCH ×2 (07:30→12:00)
[2017-08-09 08:02] VITALS: BP 152/65
[2017-08-09 08:02] LABS: ANION GAP 11.2 mmol/L (8-16); BLOOD UREA NITROGEN 29 mg/dL (7-26); BUN/CREATININE RATIO 33 (6-25); CALCIUM 9.7 mg/dL (8.4-10.2); CHLORIDE 93 mmol/L (98-107); CREATININE, SERUM 0.87 mg/dL (0.57-1.11); EST GLOMERULAR FILTRATION RATE > 60 ML/MIN (60-); GLUCOSE 124 mg/dL (74-118); MAGNESIUM 1.9 MG/DL (1.3-2.1); POTASSIUM 4.2 mmol/L (3.5-5.1); SODIUM 141 mmol/L (136-145)
[2017-08-09 08:04] LABS: CARBON DIOXIDE 41 mmol/L (22-29)
--- NOTE | 2017-08-09 09:25 | Discharge Summary ---
PRIMARY CARE DOCTOR: Dr. Rell Ruelas FINAL DIAGNOSIS: Acute respiratory distress due to pulmonary edema/diastolic congestive heart failure. SECONDARY DIAGNOSES 1. Chronic respiratory failure. 2. Morbid obesity. 3. Uncontrolled hypertension. 4. Chronic thrombocytopenia which is stable. 5. Uncontrolled diabetes. CONSULTANTS 1. Dr. Banuelos, pulmonary. 2. Dr. De La Fuente, ears, nose and throat specialist. PROCEDURES/STUDIES PERFORMED: Chest computerized tomography which is consistent with bilateral pleural effusions. HISTORY: Per [facility] HOSPITAL COURSE: The patient was admitted due to not taking her oral Lasix at home. The patient was started on IV Lasix. Initially, she was only on 40 mg b.i.d. This was increased to 80 mg b.i.d. Finally, she felt better. Initially, there was some audible wheezes. Steroids were given. ENT evaluation was done. No upper airway obstruction was noted. I have stressed the importance of taking her oral Lasix at home. She already has home oxygen at home. I have switched her blood pressure medicine from metoprolol to nifedipine. The patient was seen and examined today. It took 32 minutes total to discharge this patient. CONDITION ON DISCHARGE: Stable. DISCHARGE MEDICATIONS: Please see medication reconciliation form. PHYLLIS KABA M.D. Job#: [id number] RI cc:RELL RUELAS M.D.
[2017-08-09 09:30] VITALS: BP 152/65
[2017-08-09] MEDS: FLUTICASONE PROPIONATE NASAL SPRAY NS SCH (09:30)
[2017-08-09] MEDS: IPRATROPIUM BROMIDE 0.06% 42 MCG NASPR NS SCH (09:30)
[2017-08-09] MEDS: PREDNISONE 10 MG TAB PO SCH (09:30)
[2017-08-09] MEDS: NIFEDIPINE CR 30 MG TAB PO SCH (09:30)
[2017-08-09] MEDS: GABAPENTIN 300 MG CAP PO SCH (09:30)
[2017-08-09] MEDS: ACETAZOLAMIDE 250 MG TAB PO SCH (09:30)
[2017-08-09] MEDS: DOCUSATE SODIUM 100 MG CAP PO SCH (09:30)
[2017-08-09] MEDS: ASPIRIN 81 MG ENTERIC COATED PO SCH (09:30)
[2017-08-09] MEDS: LISINOPRIL 10 MG TAB PO SCH (09:30)
[2017-08-09] MEDS ORDERED: NIFEDIPINE10 MG PO (11:35)
[2017-08-09] MEDS ORDERED: PREDNISONE10 MG PO (11:36)
[2017-08-09 11:58] VITALS: BP 160/69
[2017-08-09 12:19] LABS: PLATELET COUNT 52 x10e3/uL (140-360)
== END 2017-08-09 12:15 | disposition home or self-care (01) | DRG 189 ==
LOC: ER 11:57 → ERHOLD 15:11 → MED/SURG 16:55
PROVIDERS: ADMIT Internal Medicine; ATTEND Internal Medicine
DX: J96.21 Acute and chronic respiratory failure with hypoxia (principal); J90 Pleural effusion, not elsewhere classified; I16.1 Hypertensive emergency; I13.0 Hypertensive heart and chronic kidney disease with heart failure and stage 1 through stage 4 chronic kidney disease, or unspecified chronic kidney disease; I50.32 Chronic diastolic (congestive) heart failure; E66.2 Morbid (severe) obesity with alveolar hypoventilation; Z68.43 Body mass index [BMI] 50.0-59.9, adult; E66.01 Morbid (severe) obesity due to excess calories; N18.9 Chronic kidney disease, unspecified; D69.6 Thrombocytopenia, unspecified; E11.65 Type 2 diabetes mellitus with hyperglycemia; Z99.81 Dependence on supplemental oxygen; G47.33 Obstructive sleep apnea (adult) (pediatric)
CPT/HCPCS: 36415; 71045; 71260; 80048; 80053; 80061; 81001; 82550; 82553; 82948; 83735; 83880; 84484; 85025; 85610; 85730; 87040; 87086; 93005; 94640; 96360; 99285; J0360; J1650; J1940; J2930; J7050; Q9967